=== PATIENT | male | born 1970 ===

== ENCOUNTER 2017-02-17 20:28 | Observation (INO) | payer OTHER ==
[2017-02-17] MEDS ORDERED: Alum-Mag Hydrox-Simethicone Susp (30 mL) PO STA (20:51)
[2017-02-17 21:22] LABS: BASO # 0.05 K/mm3 (0.0-2.0); BASO % 0.5 % (0.0-3.0); EOS # 0.4 (0.0-0.7); EOS % 3.9 % (1.5-5.0); GRAN # 5.47 (1.4-6.5); GRAN % 56.1 % (50.0-68.0); HEMATOCRIT 44.7 % (42.0-52.0); LYMPH % 30.4 % (22.0-35.0); MEAN CELL VOLUME 88.3 fl (80.0-105.0); MEAN CORPUSCULAR HEMOGLOBIN 31.2 pg (25.0-35.0); MEAN CORPUSCULAR HGB CONC 35.3 g/dl (31.0-37.0); MEAN PLATELET VOLUME 10.4 fl (7.0-11.0); MONO # 0.9 (0.1-0.6); MONO % 9.1 % (1.0-6.0); RED CELL DISTRIBUTION WIDTH 12.8 % (11.5-14.5); WHITE BLOOD COUNT 9.8 10^3/ul (4.5-11.0)
[2017-02-17 21:24] LABS: ALB/GLOB RATIO 1.6 (1.1-1.8); ALKALINE PHOSPHATASE 81 U/L (38-126); ALT/SGPT 57 U/L (7-56); AST/SGOT 48 U/L (17-59); BILIRUBIN,TOTAL 0.5 mg/dL (0.2-1.3); BLOOD UREA NITROGEN 14 mg/dL (7-21); CALCIUM 8.8 mg/dL (8.4-10.5); CARBON DIOXIDE 26 mmol/L (21-33); CHLORIDE 103 mmol/L (98-107); GFR AFRICAN-AMERICAN > 60; GLUCOSE,RANDOM 79 mg/dL (70-110); POTASSIUM 3.7 mmol/L (3.6-5.0); SODIUM 142 mmol/L (132-148); TOTAL PROTEIN 7.2 g/dL (5.8-8.3)
[2017-02-17 21:35] LABS: TROPONIN I < 0.01 ng/mL
--- NOTE | 2017-02-17 22:23 | ED PDOC ---
Arrival/HPI - General Chief Complaint: Chest Pain Time Seen by Provider: 02/17/17 20:32 Historian: Patient - History of Present Illness Narrative History of Present Illness (Text): 02/17/17 21:05 47 year old male presents to the emergency department by EMS complaining of substernal chest pain that began 30 minutes prior to arrival. Patient describes the pain as pressure like, but non-radiating. 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 Patient denies recent travels , no sick contact and denies any fever, chills, shortness of breath, nausea, vomiting, diarrhea, urinary symptoms, back pain, neck pain, headache, dizziness , or any other complaints. Time/Duration: Other (30 minutes prior to arrival ) Quality: Pressure Activities at Onset: Light Context: Home Past Medical History - Provider Review Nursing Documentation Reviewed: Yes - Travel History Have you recently traveled outside [place] w/in the past 3 mons?: No - Psychiatric Hx Substance Use: No Family/Social History - Physician Review Nursing Documentation Reviewed: Yes Family/Social History: No Known Family HX Smoking Status: n Hx Alcohol Use: Yes Hx Substance Use: No Allergies/Home Meds Allergies/Adverse Reactions: Allergies No Known Allergies Allergy (Verified 02/17/17 20:36) Home Medications: Home Meds Medication Instructions Recorded Confirmed No Known Home Med 02/17/17 02/17/17 Review of Systems - Physician Review All systems were reviewed & negative as marked: Yes - Review of Systems Constitutional: absent: Fevers, Other (Chills) Respiratory: absent: SOB, Cough Cardiovascular: absent: Chest Pain Gastrointestinal: absent: Abdominal Pain, Diarrhea, Nausea, Vomiting Genitourinary Male: absent: Dysuria, Frequency, Hematuria Musculoskeletal: absent: Back Pain, Neck Pain Neurological: absent: Headache, Dizziness Physical Exam Vital Signs Reviewed: Yes Vital Signs Temp Pulse Resp BP Pulse Ox 02/17/17 23:52 77 18 151/85 H 99 02/17/17 22:29 79 18 137/89 99 02/17/17 20:31 97.9 F 79 18 128/90 100 Temperature: Afebrile Blood Pressure: Normal Pulse: Regular Respiratory Rate: Normal Appearance: Positive for: Well-Appearing, Non-Toxic, Comfortable Pain Distress: None Mental Status: Positive for: Alert and Oriented X 3 - Systems Exam Head: Present: Atraumatic, Normocephalic Pupils: Present: PERRL Extroacular Muscles: Present: EOMI Conjunctiva: Present: Normal Mouth: Present: Moist Mucous Membranes Neck: Present: Normal Range of Motion Respiratory/Chest: Present: Clear to Auscultation, Good Air Exchange. No: Respiratory Distress, Accessory Muscle Use Cardiovascular: Present: Regular Rate and Rhythm, Normal S1, S2. No: Murmurs Abdomen: Present: Normal Bowel Sounds. No: Tenderness, Distention, Peritoneal Signs Back: Present: Normal Inspection Upper Extremity: Present: Normal Inspection. No: Cyanosis, Edema Lower Extremity: Present: Normal Inspection. No: Edema Neurological: Present: GCS=15, CN II-XII Intact, Speech Normal Skin: Present: Warm, Dry, Normal Color. No: Rashes Psychiatric: Present: Alert, Oriented x 3, Normal Insight, Normal Concentration Medical Decision Making ED Course and Treatment: 02/17/17 21:05 Impression: 47 year old male presents complaining of substernal chest pain that began 30 minutes prior to arrival. Plan: -- EKG -- Labs -- Chest X-ray -- Aspirin -- Maalox Plus 30 ml -- Reassess and disposition Progress Notes: EKG shows NSR at 88 BPM. Interpreted by me. CXR Impression: As read by me, no acute processes. Case discuessed with Dr. Cramer who is covering for Dr. Fowler who is aware and agrees with the plan. Accepts patient into service. Patient will go to Telemetry Observation for chest pain. - Lab Interpretations Lab Results: 02/17/17 20:30 02/17/17 20:30 Lab Results 02/17/17 20:30: Sodium 142, Potassium 3.7, Chloride 103, Carbon Dioxide 26, Anion Gap 17, BUN 14, Creatinine 0.9, Est GFR ( Amer) > 60, Est GFR (Non- Af Amer) > 60, Random Glucose 79, Calcium 8.8, Magnesium 2.0, Total Bilirubin 0.5, AST 48, ALT 57 H, Alkaline Phosphatase 81, Lactate Dehydrogenase 669, Total Creatine Kinase 232 H, CK-MB (CK-2) 2.3, CK-MB (CK-2) % Cancelled, Troponin I < 0.01, Total Protein 7.2, Albumin 4.4, Globulin 2.8, Albumin/ Globulin Ratio 1.6 02/17/17 20:30: WBC 9.8, RBC 5.06, Hgb 15.8, Hct 44.7, MCV 88.3, MCH 31.2, MCHC 35.3, RDW 12.8, Plt Count 265, MPV 10.4, Gran % 56.1, Lymph % (Auto) 30.4, Smyth % (Auto) 9.1 H, Eos % (Auto) 3.9, Baso % (Auto) 0.5, Gran # 5.47, Lymph # 3.0, Smyth # 0.9 H, Eos # 0.4, Baso # 0.05 I have reviewed the lab results: Yes - RAD Interpretation Radiology Orders: 02/17/17 20:36 CHEST PORTABLE [RAD] Stat - EKG Interpretation Interpreted by ED Physician: Yes Type: 12 lead EKG - Medication Orders Current Medication Orders: Discontinued Medications Al Hydrox/Mg Hydrox/Simethicone (Maalox Plus 30 Ml) 30 ml PO STAT STA Stop: 02/17/17 20:52 Last Admin: 02/17/17 20:59 Dose: 30 ml Aspirin (Aspirin) 325 mg PO STAT STA Stop: 02/17/17 20:37 Last Admin: 02/17/17 20:45 Dose: 325 mg - Scribe Statement The provider has reviewed the documentation as recorded by the Varsha Schreiber All medical record entries made by the Varsha were at my direction and personally dictated by me. I have reviewed the chart and agree that the record accurately reflects my personal performance of the history, physical exam, medical decision making, and the department course for this patient. I have also personally directed, reviewed, and agree with the discharge instructions and disposition. Disposition/Present on Arrival - Present on Arrival Any Indicators Present on Arrival: No History of DVT/PE: No History of Uncontrolled Diabetes: No Urinary Catheter: No History of Decub. Ulcer: No History Surgical Site Infection Following: None - Disposition Have Diagnosis and Disposition been Completed?: Yes Diagnosis: Chest pain Disposition: HOSPITALIZED Disposition Time: 22:00 Condition: STABLE
[2017-02-18 00:36] VITALS: BMI 380.7
[2017-02-18 06:10] VITALS: O2SAT 98
--- NOTE | 2017-02-18 08:25 | RAD ---
HISTORY: chest pain COMPARISON: No prior. FINDINGS: LUNGS: There are low lung volumes. There is a calcified nodule in the right upper lobe. No focal consolidation. PLEURA: No significant pleural effusion identified, no pneumothorax apparent. CARDIOVASCULAR: Normal. OSSEOUS STRUCTURES: No significant abnormalities. VISUALIZED UPPER ABDOMEN: Normal. OTHER FINDINGS: None. IMPRESSION: No acute findings. Low lung volumes may be related to poor inspiratory effort.
[2017-02-18] MEDS ORDERED: Enoxaparin 40 mg Syringe SC SCH (12:15)
[2017-02-18] MEDS ORDERED: Aspirin 325 mg EC Tablets PO SCH (12:30)
[2017-02-18 12:37] VITALS: BP 121/77; RESP 21; TEMP 98.6
[2017-02-18 13:01] LABS: CHOLESTEROL 165 mg/dL (130-200)
[2017-02-18 13:13] LABS: TROPONIN I < 0.01 ng/mL
--- NOTE | 2017-02-18 14:22 | CARD ---
APPROVED REPORT EKG Measurement Heart [id number] <Conclusion> Normal sinus rhythm Normal ECG
--- NOTE | 2017-02-18 14:25 | CARD ---
APPROVED REPORT EKG Measurement Heart [id number] <Conclusion> Sinus rhythm with occasional premature ventricular complexes Otherwise normal ECG
[2017-02-18] MEDS ORDERED: Iohexol 350 MG/100 ML VIAL ONE (15:05)
--- NOTE | 2017-02-18 15:45 | CT ---
PROCEDURE: CT Chest with contrast HISTORY: RUL NODULE COMPARISON: Plain radiographs performed the same day TECHNIQUE: Contiguous axial images were obtained through the chest with intravenous contrast enhancement. Sagittal and coronal reconstructions were performed. IV contrast: 100 mL Visipaque Radiation dose (DLP): 1560.40 mGy-cm. This CT exam was performed using one or more of the following dose reduction techniques: Automated exposure control, adjustment of the mA and/or kV according to patient size, and/or use of iterative reconstruction technique. FINDINGS: LUNGS: The lungs are well inflated. There is a 5 mm benign calcified granuloma in the peripheral right upper lobe. There are no noncalcified pulmonary nodules. There is no mass or consolidation. There are no endobronchial lesions. MEDIASTINUM: The aorta is not dilated. There is no pathologic lymphadenopathy. The heart is normal in size. There is no pericardial effusion. PLEURA: No pleural fluid. No pneumothorax. BONES: No fracture. No destructive lesion. There is mild multilevel degenerative disc disease with UPPER ABDOMEN: There are multiple gallstones. The adrenal glands are normal. OTHER FINDINGS: None. IMPRESSION: 1. 5 mm benign calcified granuloma in the peripheral right upper lobe. 2. No suspicious pulmonary nodule, mass or consolidation. No pathologic lymphadenopathy.
[2017-02-18] MEDS ORDERED: Pantoprazole 40 mg EC Tab PO SCH (16:00)
[2017-02-18 18:31] VITALS: PULSE 70
--- NOTE | 2017-02-18 18:54 | HP ---
HISTORY OF PRESENT ILLNESS: The patient was admitted via the emergency room at the [facility] in [place]. The patient was brought in by the paramedics for sudden onset of chest pain. The patient was feeling uncomfortable, and had momentary shortness of breath. The pain was not radiating, but retrosternal. The patient did not have any evidence of any shortness of breath at the time of evaluation in the emergency room. PAST MEDICAL HISTORY: He has had chest pain in [place] a couple of years ago and says that he had cardiac evaluation, but we cannot access any of that information at this time. SOCIAL HISTORY: He does not have any history of smoking. He does use alcohol occasionally. He has no history of substance abuse. PAST SURGICAL HISTORY: The patient does not have history of any injury. ALLERGIES: NO KNOWN DRUG ALLERGIES MEDICATIONS: The patient is not taking any medications according to the history. PHYSICAL EXAMINATION: GENERAL: The patient was comfortable, pleasant, cannot speak much [place], but he can respond to some questions and he is feeling better clinically. VITAL SIGNS: His vital signs shows the pulse is 69, blood pressure 122/72, respirations are 20, O2 sat is 98% on room air, temperature 98.9. HEENT: The patient's head is normocephalic. Eyes, ears, nose, and throat seem to be clinically clear at this time. NECK: Thyroid is not enlarged. The lymph nodes are not palpable in the neck. The carotid pulses are present. LUNGS: The trachea is central. Breath sounds are vesicular. No adventitious sounds are heard. HEART: Normal sinus rhythm. S1 and S2 present. No cardiac murmurs. No pericardial rubs. ABDOMEN: Soft. There is some truncal obesity. No liver and spleen enlargement. Ascites is negative. CENTRAL NERVOUS SYSTEM: Conscious, rational, and oriented. He has no cranial nerve involvement; II through XII are within normal limits. The patient's sense of smell and ascites seems to be within normal limits. The eye is not examined in total. The patient is able to ambulate. His sensory and motor functions are within normal limits. The patient's reflexes are normal. LABORATORY DATA: The patient's blood work shows that his white count is 9,800, hemoglobin is 15.8. His chemistry; creatinine kinase is 232, ALT is 57. His troponin is not abnormal at this time to be concerned. The patient's EKG shows nonspecific changes. IMPRESSION AND PLAN: The patient will have cardiac evaluation and plans to treat. The patent will proceed with the cardiac evaluation. At this time, we will place the patient on cardiac diet and keep him under observation. We will give the patient prophylactic aspirin. The patient will be on playground monitor. Violet Rogers MD MTDD
--- NOTE | 2017-02-19 03:12 | DS ---
LOCATION: The patient is seen in room #265, bed 2. HISTORY OF PRESENT ILLNESS: The patient is comfortable. Overnight nurse's notes were reviewed. The patient was seen and examined with the patient nurse, Lianna who also acted as a road packer operator for the patient and me. At present, the patient is totally chest pain free. PHYSICAL EXAMINATION: VITAL SIGNS: T-max afebrile. Telemetry shows normal sinus rhythm, heart rate 61-73, blood pressure 121/77, 134/91, 151/85, 137/89, and 128/90, respiration 20, O2 sat 98%. HEAD: Examination is normocephalic, atraumatic. HEENT: Examination shows pink conjunctivae. Anicteric sclerae, no oropharyngeal lesion. No neck rigidity. CHEST: Examination symmetrical. Positive gynecomastia noted. No crackles and wheezing. CARDIOVASCULAR: Examination S1, S2, regular rhythm. ABDOMEN: Protuberant, obese. Positive bowel sound. GENITALIA: Male. RECTAL: Examination is deferred. EXTREMITY: Shows no pitting. No calf tenderness. No Homans' sign. NEUROLOGIC: The patient is alert, awake, oriented x3. Cranial nerves II-XII intact. Gait examination is independent. VASCULAR: Examination palpable pulses. MUSCULOSKELETAL: Examination shows an elevated body mass index of 38. PSYCHIATRIC: Examination is negative. DIAGNOSTICS: From 02/17/2017 and 02/18/2017 is noted. D-dimer is negative. Two sets of cardiac enzymes negative. CPK is negative. Troponin is negative. Cholesterol 165, LDL 100, HDL is 52. Chest x-ray results: Calcified right upper lobe nodule. Lower lung volumes. EKG shows normal sinus rhythm. The patient was treated with in the emergency room by with aspirin. The patient was treated with aspirin and Lovenox. At present, the patient's medical history and details was obtained through the road packer operator nurse Lianna. The patient stated that he had similar pain and while he was in [place], the patient was seen and evaluated by electrical experimental mechanic, underwent a treadmill stress test which was negative. The patient was advised gastroenterology followup for endoscopy, which she was unable to do due to secondary to financial issues.. FINAL IMPRESSION, PLAN AND DISCHARGE DIAGNOSIS 1. The patient will be considered for discharge after cleared by cardiology. 2. Atypical chest pain versus gastroesophageal reflux disease. 3. Morbid obesity. 4. Questionable gynecomastia. 5. History of sleep apnea with history of snoring. 6. Questionable transient hypertension. 7. Morbid obesity with elevated body mass index. 8. Dyslipidemia with hypercholesterolemia and elevated LDL. 9. History of sleep apnea. 10. Right upper lobe 5mm benign calcified granuloma. Plan at this time, the patient is to be discharged after clearance by cardiology and after the CT of the chest report. The patient's discharge medications has been aspirin 81 mg p.o. daily, Lipitor 40 mg daily, Protonix 40 mg daily. In addition, the patient was advised outpatient gastroenterology, followup for endoscopy. The patient was advised weight loss. The patient was advised strict diet. The patient was advised low salt, low-cholesterol diet. Plan at this time, the patient will be considered for discharge after clearance by cardiology and after the CT chest is done and negative.. All the above details of the patient's diagnostic test results and evaluation and recommendation was explained to the patient in Layman's language which was translated in Occitan via the patient's nurse Lianna. Time spent in the entire discharge process more than 45 minutes. Dictated and electronically signed, not read. Signing off, Kevin Fowler MD [email or web address]
== END 2017-02-18 20:06 | disposition home or self-care (01) ==
LOC: ED 20:28 → ERH 22:36 → 2RNO 23:51
PROVIDERS: ADMIT Internal Medicine; ATTEND Internal Medicine
DX: R07.89 Other chest pain (principal); E66.01 Morbid (severe) obesity due to excess calories; Z68.38 Body mass index [BMI] 38.0-38.9, adult; E78.00 Pure hypercholesterolemia, unspecified; G47.30 Sleep apnea, unspecified
CPT/HCPCS: 36415; 71010; 71260; 80053; 80061; 82550; 82553; 83615; 83735; 84484; 85025; 85378; 93005; 96372; 99285; G0378; J1650; Q9967